=== PATIENT | male | born 1985 | race Two or more races ===

== ENCOUNTER 2023-04-20 19:03 | Emergency (ER) | payer SELFPAY ==
[~2023-04-20] VITALS: Ht 172.7 cm; Wt 60.0 kg
[2023-04-20 19:05] VITALS: BP 95/50; PULSE 74; RESP 18; TEMP 97.5; O2SAT 100
[2023-04-20] MEDS ORDERED: KETOROLAC TROMETH 60MG/2ML VIAL IM ONE (22:00)
== END 2023-04-20 22:22 | disposition home or self-care (01) ==
LOC: ER 19:03
DX: M79.671 Pain in right foot (principal)
CPT/HCPCS: 96372; 99283; J1885